=== PATIENT | female | born 1995 | race Caucasian/White ===

== ENCOUNTER 2020-12-10 06:42 | Emergency (ER) | payer BC, OTHER ==
[2020-12-10] MEDS ORDERED: HYDROmorphone 1 MG/ML Syringe IVPUSH ONE (07:05)
[2020-12-10] MEDS ORDERED: Ondansetron 4 MG/2 ML SDV IVPUSH ONE (08:03)
--- NOTE | 2020-12-10 08:05 | EDM.PDOC ---
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 She is about 10 weeks gestation. Her LNMP she says was the middle of September. She had some light spotting this weekend and then this morning she had cramping and heavy bleeding. She is G1. She has no fever, chills, cough, congestion, runny nose, chest pain or shortness of breath. She has no medical problems. She said she may have seen some tissue. Onset: Gradual Duration: Day(s): Location: Reports: Abdomen, Pelvis Quality: Reports: Other (cramping) Severity: Severe Improves with: Reports: None Worsens with: Reports: None Associated Symptoms: Reports: No Other Symptoms Uterine Pain Score (Numeric/FACES): 8 - Related Data Allergies Allergy/AdvReac Type Severity Reaction Status Date / Time No Known Allergies Allergy Verified 12/10/20 06:54 Home Meds: Home Meds . [No Known Home Meds] 03/14/19 [History] Past Medical History - Past Health History Medical/Surgical History: Denies Medical/Surgical History HEENT History: Reports: None Cardiovascular History: Reports: None Respiratory History: Reports: None Gastrointestinal History: Reports: None Genitourinary History: Reports: None AEROPHYSICIST History: Reports: None Musculoskeletal History: Reports: None Neurological History: Reports: None Psychiatric History: Reports: None Endocrine/Metabolic History: Reports: None Hematologic History: Reports: None Immunologic History: Reports: None Oncologic (Cancer) History: Reports: None Dermatologic History: Reports: None - Infectious Disease History Infectious Disease History: Reports: None - Past Surgical History Head Surgeries/Procedures: Reports: None Social & Family History - Tobacco Use Tobacco Use Status *Q: Never Tobacco User - Caffeine Use Caffeine Use: Reports: Coffee, Soda ED ROS GENERAL - Review of Systems Review Of Systems: See Below Constitutional: Reports: No Symptoms HEENT: Reports: No Symptoms Respiratory: Reports: No Symptoms Cardiovascular: Reports: No Symptoms Endocrine: Reports: No Symptoms GI/Abdominal: Reports: Abdominal Pain. Denies: Diarrhea, Nausea, Vomiting : Reports: Other (Vaginal bleeding and pelvic cramping) ED EXAM - Physical Exam Exam: See Below Exam Limited By: No Limitations General Appearance: Alert, No Apparent Distress Ears: Normal External Exam Nose: Normal Inspection Head: Atraumatic, Normocephalic Neck: Normal Inspection Respiratory/Chest: No Respiratory Distress, Lungs Clear, Normal Breath Sounds Cardiovascular: Regular Rate, Rhythm, No Edema, No Murmur GI/Abdominal Exam: Soft, No Organomegaly, No Mass, Tender (Mild to moderate tenderness to the lower abdomen) Extremities: Normal Inspection Neurological: Alert, Oriented, No Motor/Sensory Deficits Course - Vital Signs Last Recorded V/S: Last Vital Signs Temp 98.2 F 12/10/20 06:50 Pulse 80 12/10/20 06:50 Resp 16 12/10/20 06:50 BP 134/90 12/10/20 06:50 Pulse Ox 100 12/10/20 06:50 - Orders/Labs/Meds Orders: Active Orders 24 hr Category Date Time Status Pelvic Exam, Set Up [RC] ASDIRECTED Care 12/10/20 07:05 Active Labs: Laboratory Tests 12/10/20 12/10/20 12/10/20 Range/Units 07:00 07:00 07:00 WBC 9.97 (3.98-10.04) K/mm3 RBC 4.56 (3.98-5.22) M/mm3 Hgb 12.7 (11.2-15.7) gm/dl Hct 38.4 (34.1-44.9) % MCV 84.2 (79.4-94.8) fl MCH 27.9 (25.6-32.2) pg MCHC 33.1 (32.2-35.5) g/dl RDW Std Deviation 39.2 (36.4-46.3) fL Plt Count 149 L (182-369) K/mm3 MPV 10.5 (9.4-12.3) fl Neut % (Auto) 82.4 H (34.0-71.1) % Lymph % (Auto) 11.6 L (19.3-51.7) % Harper % (Auto) 5.2 (4.7-12.5) % Eos % (Auto) 0.6 L (0.7-5.8) Baso % (Auto) 0.1 (0.1-1.2) % Neut # (Auto) 8.21 H (1.56-6.13) K/mm3 Lymph # (Auto) 1.16 L (1.18-3.74) K/mm3 Harper # (Auto) 0.52 H (0.24-0.36) K/mm3 Eos # (Auto) 0.06 (0.04-0.36) K/mm3 Baso # (Auto) 0.01 (0.01-0.08) K/mm3 Sodium 139 (136-145) mEq/L Potassium 4.4 (3.5-5.1) mEq/L Chloride 104 (98-107) mEq/L Carbon Dioxide 26 (21-32) mEq/L Anion Gap 13.4 (5-15) BUN 12 (7-18) mg/dL Creatinine 0.8 (0.55-1.02) mg/dL Est Cr Clr Drug Dosing 77.22 mL/min Estimated GFR (MDRD) > 60 (>60) mL/min BUN/Creatinine Ratio 15.0 (14-18) Glucose 120 H (74-106) mg/dL Calcium 9.4 (8.5-10.1) mg/dL Total Bilirubin 0.3 (0.2-1.0) mg/dL AST 14 L (15-37) U/L ALT 18 (14-59) U/L Alkaline Phosphatase 62 (46-116) U/L Total Protein 7.5 (6.4-8.2) g/dl Albumin 3.6 (3.4-5.0) g/dl Globulin 3.9 gm/dL Albumin/Globulin Ratio 0.9 L (1-2) HCG, Quant 23338.0 mIU/mL Blood Type 12/10/20 Range/Units 07:00 WBC (3.98-10.04) K/mm3 RBC (3.98-5.22) M/mm3 Hgb (11.2-15.7) gm/dl Hct (34.1-44.9) % MCV (79.4-94.8) fl MCH (25.6-32.2) pg MCHC (32.2-35.5) g/dl RDW Std Deviation (36.4-46.3) fL Plt Count (182-369) K/mm3 MPV (9.4-12.3) fl Neut % (Auto) (34.0-71.1) % Lymph % (Auto) (19.3-51.7) % Harper % (Auto) (4.7-12.5) % Eos % (Auto) (0.7-5.8) Baso % (Auto) (0.1-1.2) % Neut # (Auto) (1.56-6.13) K/mm3 Lymph # (Auto) (1.18-3.74) K/mm3 Harper # (Auto) (0.24-0.36) K/mm3 Eos # (Auto) (0.04-0.36) K/mm3 Baso # (Auto) (0.01-0.08) K/mm3 Sodium (136-145) mEq/L Potassium (3.5-5.1) mEq/L Chloride (98-107) mEq/L Carbon Dioxide (21-32) mEq/L Anion Gap (5-15) BUN (7-18) mg/dL Creatinine (0.55-1.02) mg/dL Est Cr Clr Drug Dosing mL/min Estimated GFR (MDRD) (>60) mL/min BUN/Creatinine Ratio (14-18) Glucose (74-106) mg/dL Calcium (8.5-10.1) mg/dL Total Bilirubin (0.2-1.0) mg/dL AST (15-37) U/L ALT (14-59) U/L Alkaline Phosphatase (46-116) U/L Total Protein (6.4-8.2) g/dl Albumin (3.4-5.0) g/dl Globulin gm/dL Albumin/Globulin Ratio (1-2) HCG, Quant mIU/mL Blood Type O POSITIVE Meds: Medications Discontinued Medications Generic Name Dose Route Start Last Admin Trade Name Freq PRN Reason Stop Dose Admin Hydromorphone HCl 1 mg 12/10/20 07:05 12/10/20 07:44 Hydromorphone 1 Mg/Ml Syringe IVPUSH 12/10/20 07:06 1 mg ONETIME ONE Administration Ondansetron HCl 4 mg 12/10/20 08:03 12/10/20 08:03 Ondansetron 4 Mg/2 Ml Sdv IVPUSH 12/10/20 08:04 4 mg ONETIME ONE Administration - Re-Assessments/Exams Free Text/Narrative Re-Assessment/Exam: 12/10/20 08:04 I ordered an IV NS 1L bolus, dilaudid 1mg IV, labs, pelvic exam and a transvaginal US. 12/10/20 08:05 Her CBC and CMP look good. Her blood type is O positive. 12/10/20 08:43 Her US shows increased endometrial thickness measuring up to 2.7cm. No intrauterine gestational sac is seen. Cystic area off the left ovary which does not appear to be complicated and most likely represents an incidental exophytic cyst although difficult to completely exclude an unusual ectopic (which is felt to be unusual). No free fluid is seen. I have called Dr Hernandez. I am waiting for him to call me back. 12/10/20 10:05 Dr Hernandez came to see the patient and he feels this is a miscarriage. I will discharge he home and follow up with him or her OB doctor in [facility]. Her HCG is 19,312. Departure - Departure Time of Disposition: 10:10 Disposition: Home, Self-Care 01 Condition: Good Clinical Impression: Complete - Discharge Information *PRESCRIPTION DRUG MONITORING PROGRAM REVIEWED*: Not Applicable *COPY OF PRESCRIPTION DRUG MONITORING REPORT IN PATIENT RAFA: Not Applicable Referrals: PCP,None [Primary Care Provider] - Karsno Hernandez MD [Physician] - 1 Week Forms: ED Department Discharge Additional Instructions: Drink plenty of fluids. Take tylenol or motrin for pain. Follow up with Dr Hernandez or your OB doctor from [facility] within a week. Please return if you are saturating more then a pad an hour for a more then 3 hours or if you have more pain. Sepsis Event Note (ED) - Evaluation Sepsis Screening Result: No Definite Risk - Focused Exam Vital Signs: Vital Signs Temp Pulse Resp BP Pulse Ox 12/10/20 06:50 98.2 F 80 16 134/90 100 - My Orders Last 24 Hours: My Active Orders 12/10/20 07:05 Pelvic Exam, Set Up [RC] ASDIRECTED - Assessment/Plan Last 24 Hours: My Active Orders 12/10/20 07:05 Pelvic Exam, Set Up [RC] ASDIRECTED
--- NOTE | 2020-12-10 08:19 | US ---
First trimester obstetrical ultrasound: Multiple real-time images were obtained transvaginally. Uterus is anteverted. Endometrium is heterogeneous and has an increased thickness of 2.7 cm. No intrauterine gestational sac is appreciated. Cystic area is noted off the left ovary measuring 2.3 cm in size. Ovaries are otherwise unremarkable. No free fluid is seen. Pressure: 1. Increased endometrial thickness measuring up to 2.7 cm. No intrauterine gestational sac is seen. 2. Cystic area off the left ovary which does not appear to be complicated and most likely represents an incidental exophytic cyst although difficult to completely exclude an unusual ectopic (which is felt to be unusual). 3. No free fluid is seen. Diagnostic code #3
--- NOTE | 2020-12-10 10:41 | PCM.SN.2 ---
- Free Text/Narrative Note: S: Patient is a 25 year old with positive test of 10/09/20 with uncertain dates who presents today for a three day history of light vaginal bleeding followed by heavy vaginal bleeding this morning with passage of tissue. She reports that she was scheduled to see Dr. Hurst for her initial OB visit at approximately 12 weeks gestational age. She reports that she did notify their office when she initially had light spotting. She reports that prior to conception her period has been very irregular. She discontinued control 1.5 years ago and has been trying to get since. She reports that she did not have a period for three months, had a light period in September and then had a positive test. She reports that she did have the flu two weeks ago with significant nausea and vomiting. She reports pain 5-6/10 and describes this as a worse period like cramping. She does have some left sided pain. O: Vitals: Stable General: Alert, oriented, in no acute distress, occasionally teary during visit Lungs: Clear to auscultation Heart: Regular rate and rhythm Abdomen: Bowel sounds present, non tender to palpation, no noted organomegaly Bimanual exam: cervix firm, noted tissue in the external cervical os. Not uterine or adnexal tenderness. No palpated adnexal masses. Speculum exam: Noted tissue in the cervical os that was removed with a rings forceps. Some clotted blood in the vaginal canal. No [place] bleeding from the cervix US: No intrauterine gestational sac seen. Noted cystic area off the left ovary that most likely represents an incidental exophytic cyst, although difficulty to completely exclude an unusual ectopic . No free fluid seen. Lab: Maternal blood type O+, Hemoglobin 12.7 A: Complete spontaneous at approximately 10 weeks gestational age - O03.9 - differential diagnosis included ectopic , however pain seems to be crampy and related to the beginning of her vaginal bleeding. It is felt that complete SAB is the more likely diagnosis. P: Complete spotaneous - discussed at length, including causes - OTC NSAIDs or tylenol for pain management - Ectopic precautions given, including severe pain, increased abdominal girth - recommended follow up in [address] Hernandez's clinic or Dr. Hurst - Counselled patient on expectations for attempting to conceive again, including timeline - Discussed irregular periods; she is considering evaluation for this at this time.
== END 2020-12-10 10:31 | disposition home or self-care (01) ==
LOC: JD.ED 06:42
DX: O03.9 Complete or unspecified spontaneous abortion without complication (principal)
CPT/HCPCS: 36415; 76817; 80053; 84702; 85025; 86900; 86901; 96374; 96375; 99284; J1170; J2405; 99283